=== PATIENT | female | born 1995 | race Caucasian/White ===

== ENCOUNTER 2019-07-04 10:52 | Emergency (ER) | payer BC ==
[~2019-07-04] VITALS: Ht 154.9 cm; Wt 52.0 kg
[~2019-07-04 10:52] MED LIST: BEN25 PO
[2019-07-04 10:59] VITALS: BP 123/80; PULSE 95; RESP 18; Ht 154.9 cm; Wt 52.0 kg
[2019-07-04] MEDS ORDERED: LORAZEPAM 1 MG TAB PO ONE (12:00)
== END 2019-07-04 13:25 | disposition home or self-care (01) ==
LOC: FTE 10:52
DX: F41.9 Anxiety disorder, unspecified (principal)
CPT/HCPCS: 81025; 99283; Z7610